=== PATIENT | female | born 1995 | race Caucasian/White ===

== ENCOUNTER 2017-02-06 16:15 | Emergency (ER) | payer MEDICAID ==
[2017-02-06 16:35] VITALS: BP 122/62; PULSE 96; RESP 18; TEMP 100.8; O2SAT 97
[2017-02-06] MEDS ORDERED: IBUPROFEN 200 MG TAB PO ONE (16:35)
[2017-02-06] MEDS ORDERED: DEXAMETHASONE 4 MG TAB PO ONE (18:51)
[2017-02-06] MEDS ORDERED: BICILLIN L-A 1200000 UNIT/2 ML SYRINGE IM ONE (18:51)
[2017-02-06] MEDS ORDERED: HYDROCOD/APAP 5/325 PREPACK#6 BTL TAKEHOME ONE (18:52)
[2017-02-06] MEDS ORDERED: HYDROCODONE/APAP 5/325 TAB PO ONE (18:52)
--- NOTE | 2017-02-06 18:58 | UCPHY ---
H & P Time Seen by Provider: 02/06/17 17:28 Patient Type: New HPI/ROS: HPI Sore throat, fever. 21-year-old female by private vehicle. She complains of sore throat, fever, muscle aches and fatigue since this morning. Throat pain is worse with swallowing. No voice changes or stridor. She is able to swallow liquids. No ill contacts. ROS: Constitutional: As above, no chills. No weakness. Eyes: No discharge. No changes in vision. ENT: As above. No nasal congestion or rhinorrhea. Respiratory: No cough. No shortness of breath. Cardiac: No chest pain, no palpitations. Gastrointestinal: No abdominal pain, no vomiting, no diarrhea. Genitourinary: No hematuria. No dysuria or increased frequency with urination. Musculoskeletal: No back pain. No neck pain. As above. Skin: No rashes. Neurological: No headache. No focal weakness or altered sensation. Past medical history: Spinal surgery. Social history: Here with her boyfriend. Nonsmoker. Physical Exam: General Appearance: Alert, no distress. This patient is responding to questions appropriately and in full sentences. This patient appears well- hydrated and well-nourished. Eyes: Pupils equal and round no pallor or injection. No lid edema, erythema or injection. ENT, Mouth: Mucous membranes are moist. Diffuse mild pharyngeal erythema. No edema. No exudates No asymmetry suggestive of abscess. No stridor on auscultation of her neck. No voice changes. Respiratory: There are no retractions, lungs are clear to auscultation with good air movement bilaterally. Neurological: Motor sensory function is grossly intact. Cranial nerves are normal. Gait is normal. Skin: Warm and dry, no rashes. Musculoskeletal: Neck is supple and nontender. No cervical lymphadenopathy. Extremities are symmetrical. All joints range without pain or impingement. Psychiatric: No agitation. No depression. Database: Rapid strep-positive EKG: Imaging: Procedures: Emergency department course: Rapid strep positive. Patient given intramuscular penicillin G long-acting. She was given 2 Vicodin. She was given Decadron 10 mg orally. Vital signs have been reviewed. She feels comfortable going home and I feel she is safe for discharge. Follow-up and return to emergency department precautions discussed. All of her questions were answered. She was discharged in good condition. Differential Diagnosis: The differential diagnosis on this patient includes but is not limited to streptococcal pharyngitis. Retropharyngeal abscess, peritonsillar abscess, tracheitis, epiglottitis unlikely. This represents a partial list of diagnoses considered. These considerations are based on history, physical exam, past history, reassessment and diagnostic testing. Smoking Status: Never smoked Constitutional: Initial Vital Signs Temperature (C) 38.2 C 02/06/17 16:31 Heart Rate 96 02/06/17 16:31 Respiratory Rate 18 02/06/17 16:31 Blood Pressure 122/62 H 02/06/17 16:31 O2 Sat (%) 97 02/06/17 16:31 O2 Delivery Mode Room Air Allergies/Adverse Reactions: No Known Allergies Allergy (Unverified 02/06/17 16:31) Home Medications: Medication Instructions Recorded Bc Pills 02/06/17 Dexamethasone [Decadron 4 MG (RX)] 8 mg PO ONCE #2 tab 02/06/17 Medical Decision Making - Data Points Laboratory Results: 02/06/17 16:48 Group A Strep Screen POSITIVE H (NEGATIVE) Medications Given: Discontinued Medications Ibuprofen (Motrin) 400 mg PO EDNOW ONE Stop: 02/06/17 16:36 Last Admin: 02/06/17 16:53 Dose: 400 mg Departure - Departure Disposition: Home, Routine, Self-Care Clinical Impression: Streptococcal pharyngitis Condition: Good Instructions: Strep Throat (ED) Additional Instructions: Read and follow provided instructions. Follow-up with your primary care physician in 1-2 days for re-evaluation. Ibuprofen dosin mg every 6 hours with meals for the next 3 days only. [place]/Percocet dosin-2 every 4-6 [address] for [address] not drive on this medication. Take medication as prescribed. Return to the emergency department for worsening throat pain, difficulty swallowing, voice changes, difficulty breathing or other serious concerns. Referrals: NONE *PRIMARY CARE P,. [Primary Care Provider] - As per Instructions Prescriptions: Dexamethasone [Decadron 4 MG (RX)] 8 mg PO ONCE #2 tab - PQRS PQRS Measurement: Not applicable.
== END 2017-02-06 19:09 | disposition home or self-care (01) ==
LOC: CED 16:15
DX: J02.0 Streptococcal pharyngitis (principal)
CPT/HCPCS: 87880-PO; 96372-PO; 99203-PO; G0463-PO; J0561

== ENCOUNTER 2017-07-15 14:04 | Inpatient (IN) | payer MEDICAID ==
--- NOTE | 2017-07-15 15:01 | EDPHY ---
H & P Stated Complaint: FEVER CHILLS BODY ACHES, ABD PAIN, N/V Time Seen by Provider: 07/15/17 15:00 HPI/ROS: CHIEF COMPLAINT: Fever, nausea, vomiting, abdominal pain HISTORY OF PRESENT ILLNESS: The patient presents to the ED with a 1 day history of fever, nausea, vomiting, abdominal pain and diffuse myalgias. The patient reportedly woke with these symptoms today. Yesterday the patient was fine without any symptoms of infection or pain. The patient denies any dysuria or diarrhea. The patient reports she has been quite fatigued secondary to an increased schedule demand at her [facility]. The patient complains of generalized abdominal pain which is greatest in the right lower quadrant and left upper quadrant. She denies any vaginal bleeding or discharge. The patient reports her pain is currently a 10/10. The patient has had no history of cough, rash, swollen joints or other acute complaints. She does complain of a mild frontal headache. She has no sore throat or neck stiffness. There has been no recent travel outside the [place]. She has started no new medications. No known history of an insect bite. REVIEW OF SYSTEMS: A comprehensive 10 point review of systems is otherwise negative aside from elements mentioned in the history of present illness. Source: Patient - Personal History LMP (Females 10-55): 15-21 Days Ago Current Tetanus Diphtheria and Acellular Pertussis (TDAP): Yes - Medical/Surgical History Other PMH: spinal cord surg.POLYCYCTIC OVARIES,DENTAL BONE GRAFT - Social History Smoking Status: Never smoked - Physical Exam Exam: General Appearance: Alert, mild distress secondary to pain, tearful Eyes: Pupils equal and round no pallor or injection ENT, Mouth: Mucous membranes moist Respiratory: There are no retractions, lungs are clear to auscultation Cardiovascular: Regular rate and rhythm Gastrointestinal: Generalized tenderness, greatest in the right lower quadrant , left upper quadrant and suprapubic area Neurological: A&O, normal motor function, normal sensory exam, normal cranial nerves Skin: Warm and dry, no rashes Musculoskeletal: Neck is supple nontender specifically without meningeal symptoms Extremities: symmetrical, full range of motion Constitutional: Initial Vital Signs Temperature (C) 37.0 C 07/15/17 14:09 Heart Rate 108 H 07/15/17 14:09 Respiratory Rate 16 07/15/17 14:09 Blood Pressure 111/91 H 07/15/17 14:09 O2 Sat (%) 99 07/15/17 14:09 O2 Delivery Mode Room Air Allergies/Adverse Reactions: No Known Allergies Allergy (Unverified 07/15/17 14:08) Home Medications: Medication Instructions Recorded NK [No Known Home Meds] 07/15/17 Medical Decision Making - Diagnostics Imaging Results: Imaging Impressions Abdomen CT 07/15/17 16:03 Impression: 1. Minimal central intrahepatic biliary dilatation with mild gallbladder distention in the common duct at the upper limits of normal in caliber. 2. Constipation. 3. Possible sacroiliitis. 4. Additional findings as above. Findings discussed with Dr. Sacha Menjivar on July 15, 2017 at 1726 hours. ED Course/Re-evaluation: The patient presents to the ED for evaluation of fever, nausea, vomiting, myalgias and abdominal pain. The patient's initial examination did demonstrate fairly significant tenderness to palpation throughout her abdomen without localized symptoms. Based upon this finding, she was taken for a emergent CT scan of the abdomen pelvis which was negative for evidence of appendicitis, perforation or free air. CBC which demonstrates a normal white blood cell count. The patient's electrolytes are within normal limits. She had a slightly elevated total bilirubin 1.5. The patient's urinalysis does demonstrate evidence of dehydration without evidence of pyuria or hematuria. The patient was treated with IV fluids, Ativan and pain medications in the emergency department. She had multiple examinations by myself over a 4 hour period. At 7:00 p.m., the patient continues to feel poorly with complaints of fever, myalgias and diffuse body pain. The patient has no meningeal symptoms. At this point time the etiology of her symptoms are somewhat uncertain. It is certainly possible she is experiencing a viral illness such as West Nile virus. I have sent that serology. Blood cultures have been obtained. Given the patient's symptoms of significant malaise and weakness I do feel that she should be admitted to the hospital for observation. She is unable to ambulate secondary to her level of generalized discomfort. Consultation was made with Dr. Martin Novak the hospitalist service who will admit the patient for observation this evening. Differential Diagnosis: Differential diagnosis considered includes appendicitis, pyelonephritis, viral syndrome, West Nile virus, meningitis, pneumonia, bacteremia - Data Points Laboratory Results: Laboratory Results 07/15/17 15:05 07/15/17 15:05 07/15/17 07/15/17 07/15/17 17:30 15:05 15:05 WBC RBC Hgb Hct MCV MCH MCHC RDW Plt Count MPV Neut % (Auto) Lymph % (Auto) [place] % (Auto) Eos % (Auto) Baso % (Auto) Nucleat RBC Rel Count Absolute Neuts (auto) Absolute Lymphs (auto) Absolute Monos (auto) Absolute Eos (auto) Absolute Basos (auto) Absolute Nucleated RBC Immature Gran % Immature Gran # ESR Sodium Potassium Chloride Carbon Dioxide Anion Gap BUN Creatinine Estimated GFR Glucose Calcium Phosphorus Total Bilirubin Conjugated Bilirubin Unconjugated Bilirubin AST ALT Alkaline Phosphatase C-Reactive Protein 17.3 mg/L H mg/L (<10.0) Total Protein Albumin Lipase Beta HCG, Qual Urine Color YELLOW Urine Appearance HAZY Urine pH 8.0 H (5.0-7.5) Ur Specific [place] > 1.035 H (1.002-1.030) Urine Protein NEGATIVE (NEGATIVE) Urine Ketones NEGATIVE (NEGATIVE) Urine Blood 1+ H (NEGATIVE) Urine Nitrate NEGATIVE (NEGATIVE) Urine Bilirubin NEGATIVE (NEGATIVE) Urine Urobilinogen NEGATIVE EU EU (0.2-1.0) Ur Leukocyte Esterase 3+ H (NEGATIVE) Urine RBC NONE SEEN /hpf /hpf (0-3) Urine WBC 1-3 /hpf /hpf (0-3) Ur Epithelial Cells 2+ /lpf H /lpf (NONE-1+) Urine Mucus TRACE /lpf /lpf (NONE-1+) Urine Glucose NEGATIVE (NEGATIVE) West Nile Virus IgG Ab Pending West Nile Virus IgM Ab Pending West Nile Interp Pending 07/15/17 07/15/17 07/15/17 15:05 15:05 15:05 WBC RBC Hgb Hct 48.8 % H % (38.0-47.0) MCV MCH MCHC RDW Plt Count MPV Neut % (Auto) Lymph % (Auto) [place] % (Auto) Eos % (Auto) Baso % (Auto) Nucleat RBC Rel Count Absolute Neuts (auto) Absolute Lymphs (auto) Absolute Monos (auto) Absolute Eos (auto) Absolute Basos (auto) Absolute Nucleated RBC Immature Gran % Immature Gran # ESR Pending Sodium 141 mEq/L mEq/L (134-144) Potassium 3.9 mEq/L mEq/L (3.5-5.2) Chloride 99 mEq/L mEq/L (97-110) Carbon Dioxide 24 mEq/l mEq/l (22-31) Anion Gap 18 mEq/L H mEq/L (8-16) BUN 11 mg/dL mg/dL (7-23) Creatinine 0.7 mg/dL mg/dL (0.6-1.0) Estimated GFR > 60 Glucose 93 mg/dL mg/dL (70-100) Calcium 10.7 mg/dL H mg/dL (8.5-10.4) Phosphorus 2.9 mg/dL mg/dL (2.5-4.5) Total Bilirubin 1.5 mg/dL H mg/dL (0.1-1.4) Conjugated Bilirubin 0.2 mg/dL mg/dL (0.0-0.5) Unconjugated Bilirubin 1.3 mg/dL H mg/dL (0.0-1.1) AST 29 IU/L IU/L (14-46) ALT 46 IU/L IU/L (9-52) Alkaline Phosphatase 73 IU/L IU/L (38-126) C-Reactive Protein Total Protein 8.9 g/dL H g/dL (6.3-8.2) Albumin 5.3 g/dL H g/dL (3.5-5.0) Lipase 217 IU/L IU/L (23-300) Beta HCG, Qual NEGATIVE Urine Color Urine Appearance Urine pH Ur Specific [place] Urine Protein Urine Ketones Urine Blood Urine Nitrate Urine Bilirubin Urine Urobilinogen Ur Leukocyte Esterase Urine RBC Urine WBC Ur Epithelial Cells Urine Mucus Urine Glucose West Nile Virus IgG Ab West Nile Virus IgM Ab West Nile Interp 07/15/17 15:05 WBC 4.73 10^3/uL 10^3/uL (3.80-9.50) RBC 5.36 10^6/uL H 10^6/uL (4.18-5.33) Hgb 17.0 g/dL H g/dL (12.6-16.3) Hct 48.7 % H % (38.0-47.0) MCV 90.9 fL fL (81.5-99.8) MCH 31.7 pg pg (27.9-34.1) MCHC 34.9 g/dL g/dL (32.4-36.7) RDW 12.2 % % (11.5-15.2) Plt Count 233 10^3/uL 10^3/uL (150-400) MPV 9.6 fL fL (8.7-11.7) Neut % (Auto) 88.7 % H % (39.3-74.2) Lymph % (Auto) 6.1 % L % (15.0-45.0) [place] % (Auto) 4.2 % L % (4.5-13.0) Eos % (Auto) 0.4 % L % (0.6-7.6) Baso % (Auto) 0.4 % % (0.3-1.7) Nucleat RBC Rel Count 0.0 % % (0.0-0.2) Absolute Neuts (auto) 4.19 10^3/uL 10^3/uL (1.70-6.50) Absolute Lymphs (auto) 0.29 10^3/uL L 10^3/uL (1.00-3.00) Absolute Monos (auto) 0.20 10^3/uL L 10^3/uL (0.30-0.80) Absolute Eos (auto) 0.02 10^3/uL L 10^3/uL (0.03-0.40) Absolute Basos (auto) 0.02 10^3/uL 10^3/uL (0.02-0.10) Absolute Nucleated RBC 0.00 10^3/uL 10^3/uL (0-0.01) Immature Gran % 0.2 % % (0.0-1.1) Immature Gran # 0.01 10^3/uL 10^3/uL (0.00-0.10) ESR Sodium Potassium Chloride Carbon Dioxide Anion Gap BUN Creatinine Estimated GFR Glucose Calcium Phosphorus Total Bilirubin Conjugated Bilirubin Unconjugated Bilirubin AST ALT Alkaline Phosphatase C-Reactive Protein Total Protein Albumin Lipase Beta HCG, Qual Urine Color Urine Appearance Urine pH Ur Specific [place] Urine Protein Urine Ketones Urine Blood Urine Nitrate Urine Bilirubin Urine Urobilinogen Ur Leukocyte Esterase Urine RBC Urine WBC Ur Epithelial Cells Urine Mucus Urine Glucose West Nile Virus IgG Ab West Nile Virus IgM Ab West Nile Interp Medications Given: Discontinued Medications Sodium Chloride (Ns) 1,000 mls @ 0 mls/hr IV EDNOW ONE; [place] PRN Reason: Protocol Stop: 07/15/17 15:07 Last Admin: 07/15/17 15:19 Dose: 1,000 mls Sodium Chloride (Ns) 1,000 mls @ 0 mls/hr IV EDNOW ONE; Wide Open PRN Reason: Protocol Stop: 07/15/17 18:48 Last Admin: 07/15/17 19:05 Dose: 1,000 mls Lorazepam (Ativan Injection) 0.5 mg IVP EDNOW ONE Stop: 07/15/17 15:07 Last Admin: 07/15/17 15:19 Dose: 0.5 mg Morphine Sulfate (Morphine) 4 mg IVP EDNOW ONE Stop: 07/15/17 15:07 Last Admin: 07/15/17 15:19 Dose: 4 mg Ondansetron HCl (Zofran) 4 mg IVP EDNOW ONE Stop: 07/15/17 17:10 Last Admin: 07/15/17 17:14 Dose: 4 mg Departure - Departure Disposition: [facility] Inpatient Acute Clinical Impression: Febrile illness, acute Condition: Good Referrals: NONE *PRIMARY CARE P,. [Primary Care Provider] - As per Instructions
[2017-07-15] MEDS ORDERED: NS 1,000 ML IV ONE ×2 (15:06→18:47)
[2017-07-15] MEDS ORDERED: LORazepam 2 MG/ML INJ IVP ONE (15:06)
[2017-07-15 15:13] LABS: % IMMATURE GRANULYOCYTES 0.2 % (0.0-1.1); ABSOLUTE IMMATURE GRANULOCYTES 0.01 10^3/uL (0.00-0.10); ADD DIFF? NO; ADD MORPH? NO; ADD SCAN? NO; ATYPICAL LYMPHOCYTE FLAG 0 (0-99); FRAGMENT RBC FLAG 0 (0-99); HEMATOCRIT 48.7 % (38.0-47.0); LEFT SHIFT FLG 40 (0-99); LIPEMIA HEMOLYSIS FLAG 90 (0-99); MEAN CELL HEMOGLOBIN 31.7 pg (27.9-34.1); MEAN CELL HEMOGLOBIN CONCENTR. 34.9 g/dL (32.4-36.7); MEAN CELL VOLUME 90.9 fL (81.5-99.8); MEAN PLATELET VOLUME 9.6 fL (8.7-11.7); PLATELET CLUMPS FLAG 0 (0-99); PLATELET COUNT 233 10^3/uL (150-400); RED BLOOD CELL COUNT 5.36 10^6/uL (4.18-5.33); RED CELL DISTRIBUTION WIDTH 12.2 % (11.5-15.2)
[2017-07-15 15:33] LABS: ALANINE AMINOTRANSFERASE 46 IU/L (9-52); ALBUMIN 5.3 g/dL (3.5-5.0); ALKALINE PHOSPHATASE 73 IU/L (38-126); ANION GAP 18 mEq/L (8-16); ASPARTATE AMINOTRANSFERASE 29 IU/L (14-46); BILIRUBIN,TOTAL 1.5 mg/dL (0.1-1.4); BILIRUBIN-CONJUGATED 0.2 mg/dL (0.0-0.5); BILIRUBIN-UNCONJUGATED 1.3 mg/dL (0.0-1.1); CALCIUM 10.7 mg/dL (8.5-10.4); CARBON DIOXIDE 24 mEq/l (22-31); CHLORIDE 99 mEq/L (97-110); CREATININE 0.7 mg/dL (0.6-1.0); GLOMERULAR FILTRATION RATE > 60; GLUCOSE 93 mg/dL (70-100); POTASSIUM 3.9 mEq/L (3.5-5.2); SODIUM 141 mEq/L (134-144); TOTAL PROTEIN 8.9 g/dL (6.3-8.2)
[2017-07-15] MEDS ORDERED: IOPAMIDOL (ISOVUE-300) 100 ML BTL ONE (16:18)
[2017-07-15] MEDS ORDERED: ONDANSETRON 4 MG/2 ML VIAL IVP ONE (17:09)
[2017-07-15 18:09] LABS: COLOR YELLOW; LEUKOCYTE ESTERASE,URINE 3+ (NEGATIVE); NITRITE,URINE NEGATIVE (NEGATIVE)
[2017-07-15 18:21] LABS: MUCUS TRACE /lpf (NONE-1+)
[2017-07-15 18:30] LABS: RBC,URINE NONE SEEN /hpf (0-3)
[2017-07-15 19:07] LABS: HEMATOCRIT 48.8 % (38.0-47.0)
[2017-07-15] MEDS ORDERED: ONDANSETRON DISINTEGRATING 4 MG TAB PO PRN (19:08)
--- NOTE | 2017-07-15 19:35 | GHP ---
[f rep st] HISTORY AND PHYSICAL DATE OF ADMISSION: 07/15/2017 CHIEF COMPLAINT: Fever. HISTORY OF PRESENT ILLNESS: This is a 21-year-old female, who comes in with fevers and rigors that began at 5:00 a.m. this morning. She also complains of nausea, vomiting, and some crampy abdominal pain. She says that she woke up with these symptoms. She also describes some myalgias and feeling of her skin crawling. She tells me it feels like she has the flu. She has no headache, sore throat , runny nose, coughing. Some mild shortness of breath with deep inspiration. No chest pain. Some ongoing abdominal pain. No dysuria, no diarrhea, no new rash. She tells me that everyone in her so rority is sick, though it sounds like they all have different illnesses. PAST MEDICAL/SURGICAL HISTORY: 1. Spinal surgeries for scoliosis, including rods. 2. PCOS. 3. Dental bone graft. MEDICATIONS: Please see medication reconciliation. ALLERGIES: No known drug allergies. FAMILY HISTORY: Reviewed and noncontributory. SOCIAL HISTORY: She is studying by [employer] at . REVIEW OF SYSTEMS: A 10-point review of systems is conducted, and is negative except per HPI. PHYSICAL EXAM: VITAL SIGNS: Blood pressure 123/81, heart rate 98, respiration rate 18, sat 97% on room air, temperature is 37.5. GENERAL: The patient is a pleasant female, appears quite uncomforta ble. She is slightly tearful throughout the interview. HEENT: Normocephalic, atraumatic. NECK: N o cervical lymphadenopathy. CARDIAC: Regular rate and rhythm. No murmurs, rubs, or gallops. PULM ONARY: Lungs clear to auscultation bilaterally. ABDOMEN: Soft. She is mildly diffusely tender to palpation. There is no Dean's sign. SKIN: No rash. : No [place]. NEUROLOGIC: Alert and orie nted x3. She is moving all extremities. PSYCHIATRIC: Normal mood and affect. LABS: Hemoglobin 17. ESR is pending. Anion gap is 18, though she has normal bicarb, total bilirub in is 1.5, calcium is 10.7. Urinalysis shows 3+ leuk esterase, 1+ blood. West Nile virus serologie s are pending. DATA: I discussed with Dr. Menjivar in the ED. We will admit to med surg for observation. Her CT sc an shows mild central intrahepatic biliary dilation, possible sacroiliitis. IMPRESSION AND PLAN: A 21-year-old female with suspected viral syndrome. 1. Viral syndrome: Primary localizing symptoms are nausea, vomiting. This could be norovirus and rotavirus. She is not really having much diarrhea associated with this. Inflammatory markers are p ending. CT scan shows mild intrahepatic biliary dilation, though her exam is not really consistent with acute cholecystitis. Her bilirubin is slightly elevated. I will send off a respiratory viral PCR. She tells me she feels like she has the flu. Otherwise, we will admit for supportive care, an d following other labs that have been sent. Provide her IV hydration, Tylenol, Toradol, and narcoti cs as needed. 2. Dehydration: She will get continuous IV fluids overnight. We will recheck her labs including h er erythrocythemia, hypercalcemia, and her anion gap. /[id number]/MODL
[2017-07-15] MEDS ORDERED: KETOROLAC 30 MG/1 ML SDV ONE (19:44)
[2017-07-15] MEDS: ACETAMINOPHEN 500 MG TAB PO SCH (20:48)
[2017-07-15] MEDS: NS 1,000 ML IV SCH (20:48)
[2017-07-15] MEDS: oxyCODONE IR 5 MG TAB PO PRN (20:49)
[2017-07-16] MEDS: KETOROLAC 15 MG/1 ML SDV IVP SCH ×2 (00:36→05:05)
[2017-07-16] MEDS: NS 1,000 ML IV SCH ×2 (05:06→15:08)
[2017-07-16 05:14] LABS: ADD DIFF? NO; ADD MORPH? NO; ADD SCAN? NO; ATYPICAL LYMPHOCYTE FLAG 0 (0-99); FRAGMENT RBC FLAG 0 (0-99); HEMOGLOBIN 12.8 g/dL (12.6-16.3); LEFT SHIFT FLG 40 (0-99); LIPEMIA HEMOLYSIS FLAG 80 (0-99); MEAN CELL HEMOGLOBIN 31.4 pg (27.9-34.1); MEAN CELL HEMOGLOBIN CONCENTR. 33.7 g/dL (32.4-36.7); MEAN CELL VOLUME 93.1 fL (81.5-99.8); MEAN PLATELET VOLUME 9.3 fL (8.7-11.7); PLATELET CLUMPS FLAG 0 (0-99); PLATELET COUNT 180 10^3/uL (150-400); RED BLOOD CELL COUNT 4.08 10^6/uL (4.18-5.33); RED CELL DISTRIBUTION WIDTH 12.3 % (11.5-15.2)
[2017-07-16 05:29] LABS: ALANINE AMINOTRANSFERASE 32 IU/L (9-52); ALBUMIN 2.9 g/dL (3.5-5.0); ALKALINE PHOSPHATASE 43 IU/L (38-126); ANION GAP 7 mEq/L (8-16); ASPARTATE AMINOTRANSFERASE 22 IU/L (14-46); CALCIUM 8.8 mg/dL (8.5-10.4); CARBON DIOXIDE 26 mEq/l (22-31); CHLORIDE 105 mEq/L (97-110); CREATININE 0.7 mg/dL (0.6-1.0); GLOMERULAR FILTRATION RATE > 60; GLUCOSE 95 mg/dL (70-100); POTASSIUM 4.2 mEq/L (3.5-5.2); SODIUM 138 mEq/L (134-144); TOTAL PROTEIN 5.4 g/dL (6.3-8.2)
[2017-07-16] MEDS: ACETAMINOPHEN 500 MG TAB PO SCH ×3 (09:31→20:56)
[2017-07-16] MEDS: oxyCODONE IR 5 MG TAB PO PRN ×4 (09:32→20:56)
[2017-07-16] MEDS ORDERED: MAGNESIUM HYDROXIDE 30 ML UDCUP PO PRN (11:10)
[2017-07-16] MEDS ORDERED: BISACODYL 10 MG SUPP PR PRN (11:10)
[2017-07-16] MEDS ORDERED: LACTULOSE 20 GM/30 ML UDCUP PO PRN (11:10)
[2017-07-16] MEDS: IBUPROFEN 600 MG TAB PO PRN ×2 (12:09→18:11)
[2017-07-16] MEDS: POLYETHYLENE GLYCOL 3350 17 GM PKT PO PRN (12:10)
--- NOTE | 2017-07-16 15:47 | HOSPPROG ---
Hospitalist Progress Note Assessment/Plan: * Fever/N/V/abd pain -may all be viral but consider GB disease -had recurrent of fever last night -new intermittent RUQ pain for 1 week -CT with bile duct dilation, distended GB -check abd US * Constipation - no BM for 5 days -bowel protocol * Scoliosis s/p fusion * Sacroiliitis - ? degenerative * RLQ pain - CT negative in this region -recommended outpatient area forester follow-up * Emotional distress - step father in traumatic accident last night - in ICU Subjective: Patient very tearful, still not eating much. Lots of RUQ pain, new for the last week. Family history of gallbladder disease. RLQ/pelvic pain - different - has been going for almost a year. Objective: Vital Signs Temp Pulse Resp BP Pulse Ox 36.8 C 64 16 105/61 96 07/16/17 15:22 07/16/17 15:22 07/16/17 15:22 07/16/17 15:22 07/16/17 15:22 Microbiology 07/15/17 23:42 Respiratory Panel (PCR) - Final Nasal, Sinus - Swab No Organism Detected Laboratory Results 07/16/17 04:58 07/16/17 04:58 07/15/17 07/16/17 07/17/17 05:59 05:59 05:59 Intake Total 2800 Output Total 2100 1700 Balance 700 -1700 - Physical Exam Constitutional: no apparent distress, appears nourished, not in pain Cardiovascular: regular rate and rhythym, no murmur, rub, or gallop Respiratory: no respiratory distress, no rales or rhonchi, clear to auscultation Gastrointestinal: normoactive bowel sounds, soft, non-tender abdomen, no palpable masses Skin: no rashes or abrasions, no fluctuance, no induration Neurologic: AAOx3, sensation intact bilaterally Psychiatric: interacting appropriately, not anxious, not encephalopathic, thought process linear ICD10 Worksheet Patient Problems: Problems Problem Status Onset Febrile illness, acute Acute
[2017-07-16] MEDS: SENNOSIDES/DOCUSATE SODIUM TAB PO SCH (19:39)
[2017-07-16] MEDS: ONDANSETRON 4 MG/2 ML VIAL IVP PRN (19:39)
[2017-07-17] MEDS: NS 1,000 ML IV SCH ×3 (00:12→19:38)
[2017-07-17] MEDS: ONDANSETRON 4 MG/2 ML VIAL IVP PRN (00:12)
[2017-07-17] MEDS ORDERED: PROMETHAZINE HCL 25 MG/ML INJ IVP PRN (00:24)
[2017-07-17] MEDS ORDERED: HYDROmorphONE/DILAUDID 1 MG/ML SYR IVP ONE (01:10)
[2017-07-17 01:34] LABS: COLOR PALE YELLOW; LEUKOCYTE ESTERASE,URINE NEGATIVE (NEGATIVE); NITRITE,URINE NEGATIVE (NEGATIVE)
[2017-07-17] MEDS: SENNOSIDES/DOCUSATE SODIUM TAB PO SCH ×2 (10:28→21:22)
[2017-07-17] MEDS: IBUPROFEN 600 MG TAB PO PRN (10:28)
[2017-07-17] MEDS: ACETAMINOPHEN 500 MG TAB PO SCH ×3 (10:29→21:22)
[2017-07-17] MEDS: oxyCODONE IR 5 MG TAB PO PRN ×3 (10:34→18:24)
[2017-07-17 12:02] LABS: % IMMATURE GRANULYOCYTES 0.8 % (0.0-1.1); ABSOLUTE IMMATURE GRANULOCYTES 0.02 10^3/uL (0.00-0.10); ADD DIFF? NO; ADD MORPH? NO; ADD SCAN? NO; ATYPICAL LYMPHOCYTE FLAG 0 (0-99); FRAGMENT RBC FLAG 0 (0-99); HEMATOCRIT 36.9 % (38.0-47.0); HEMOGLOBIN 12.4 g/dL (12.6-16.3); LEFT SHIFT FLG 10 (0-99); LIPEMIA HEMOLYSIS FLAG 80 (0-99); MEAN CELL HEMOGLOBIN 31.7 pg (27.9-34.1); MEAN CELL HEMOGLOBIN CONCENTR. 33.6 g/dL (32.4-36.7); MEAN CELL VOLUME 94.4 fL (81.5-99.8); MEAN PLATELET VOLUME 9.7 fL (8.7-11.7); PLATELET CLUMPS FLAG 0 (0-99); PLATELET COUNT 169 10^3/uL (150-400); RED BLOOD CELL COUNT 3.91 10^6/uL (4.18-5.33); RED CELL DISTRIBUTION WIDTH 12.5 % (11.5-15.2)
[2017-07-17 12:11] LABS: INR 1.15 (0.83-1.16); PROTIME(PATIENT) 14.6 SEC (12.0-15.0)
[2017-07-17] MEDS: POLYETHYLENE GLYCOL 3350 17 GM PKT PO PRN (12:25)
[2017-07-17] MEDS: PANTOPRAZOLE SODIUM 40 MG in NS 100 ML IV SCH (12:25)
[2017-07-17 12:41] LABS: ALANINE AMINOTRANSFERASE 43 IU/L (9-52); ALBUMIN 3.1 g/dL (3.5-5.0); ALKALINE PHOSPHATASE 51 IU/L (38-126); ANION GAP 7 mEq/L (8-16); ASPARTATE AMINOTRANSFERASE 26 IU/L (14-46); BILIRUBIN,TOTAL 0.4 mg/dL (0.1-1.4); BILIRUBIN-CONJUGATED 0.3 mg/dL (0.0-0.5); BILIRUBIN-UNCONJUGATED 0.1 mg/dL (0.0-1.1); CALCIUM 9.1 mg/dL (8.5-10.4); CARBON DIOXIDE 27 mEq/l (22-31); CHLORIDE 107 mEq/L (97-110); CREATININE 0.7 mg/dL (0.6-1.0); GLOMERULAR FILTRATION RATE > 60; GLUCOSE 77 mg/dL (70-100); POTASSIUM 3.7 mEq/L (3.5-5.2); SODIUM 141 mEq/L (134-144); TOTAL PROTEIN 5.6 g/dL (6.3-8.2)
--- NOTE | 2017-07-17 15:38 | HOSPPROG ---
Hospitalist Progress Note Assessment/Plan: * Epigastric + RUQ/LUQ abd pain -suspect element of viral gastroenteritis (fever) -consider PUD given prolonged course (10 days) -RUQ US ok - no evidence for GB disease -start empiric PPI and advance diet -NPO after midnight in case EGD warranted in am -consult GI in am if patient is not improved * Constipation - no BM for 5 days -bowel protocol * Scoliosis s/p fusion * Sacroiliitis - ? degenerative * Chronic RLQ pain - CT negative in this region -recommended outpatient mobile game engineer follow-up * Possible malnutrition - albumin low -check pre-albumin -patient follows very restrictive diet -dietary consult Subjective: N/V last night. Still with bilateral upper quadrant pain that is new for the last 10 days. This is on a background of chronic RLQ pain which she has had since IUD placed. Objective: Vital Signs Temp Pulse Resp BP Pulse Ox 36.5 C 71 16 103/71 93 07/17/17 12:00 07/17/17 12:00 07/17/17 12:00 07/17/17 12:00 07/17/17 12:00 Laboratory Results 07/17/17 11:55 07/17/17 11:55 07/16/17 07/17/17 07/18/17 05:59 05:59 05:59 Intake Total 2600 500 Output Total 3602 700 Balance -1002 -200 PT 14.6 SEC (12.0-15.0) 07/17/17 11:55 INR 1.15 (0.83-1.16) 07/17/17 11:55 Case d/w Dr. Vlilela. He is unavailable to do EGD tomorrow and patient has already eaten today. Will need to call [facility] for EGD tomorrow if still indicated. RUQ US - normal GB - Time Spent With Patient Time Spent with Patient: greater than 35 minutes Time Spent with Patient: Greater than 35 minutes spent on this patients care, greater than 50% of time spent counseling, educating, and coordinating care regarding the above mentioned plan. - Physical Exam Constitutional: no apparent distress, appears nourished, not in pain Cardiovascular: regular rate and rhythym, no murmur, rub, or gallop Respiratory: no respiratory distress, no rales or rhonchi, clear to auscultation Gastrointestinal: normoactive bowel sounds, soft, non-tender abdomen, no palpable masses Skin: no rashes or abrasions, no fluctuance, no induration Neurologic: AAOx3, sensation intact bilaterally Psychiatric: interacting appropriately, not anxious, not encephalopathic, thought process linear ICD10 Worksheet Patient Problems: Problems Problem Status Onset Febrile illness, acute Acute
[2017-07-18 05:20] LABS: ADD MORPH? NO; ADD SCAN? YES; FRAGMENT RBC FLAG 0 (0-99); HEMATOCRIT 32.9 % (38.0-47.0); HEMOGLOBIN 11.2 g/dL (12.6-16.3); LEFT SHIFT FLG 0 (0-99); LIPEMIA HEMOLYSIS FLAG 90 (0-99); MEAN CELL HEMOGLOBIN 31.8 pg (27.9-34.1); MEAN CELL VOLUME 93.5 fL (81.5-99.8); MEAN PLATELET VOLUME 9.8 fL (8.7-11.7); PLATELET CLUMPS FLAG 10 (0-99); PLATELET COUNT 149 10^3/uL (150-400); RED BLOOD CELL COUNT 3.52 10^6/uL (4.18-5.33); RED CELL DISTRIBUTION WIDTH 12.6 % (11.5-15.2)
[2017-07-18 05:22] LABS: ATYPICAL LYMPHOCYTE FLAG 100 (0-99)
[2017-07-18 06:13] LABS: ADD DIFF? YES; SCAN POSITIVE
[2017-07-18 06:19] LABS: PLATELET ESTIMATE DECREASED (ADEQ)
[2017-07-18] MEDS: PANTOPRAZOLE SODIUM 40 MG in NS 100 ML IV SCH (08:42)
[2017-07-18] MEDS: ACETAMINOPHEN 500 MG TAB PO SCH ×3 (08:42→22:11)
[2017-07-18] MEDS: SENNOSIDES/DOCUSATE SODIUM TAB PO SCH ×2 (08:43→22:12)
[2017-07-18] MEDS: oxyCODONE IR 5 MG TAB PO PRN ×3 (08:48→18:29)
--- NOTE | 2017-07-18 10:34 | HOSPPROG ---
Hospitalist Progress Note Assessment/Plan: #Acute epigastric/RUQ pain: she states pain worse today in RUQ and epigastric region. Mild biliary dilatation on CT, GB normal on U/S. CRP was elevated, ESR 6. -GI rec trial PPI BID and MRCP given biliary dilation #Moderate protein caloric malnutrition: pre-alb low. Follows a restrictive diet #PCOS #Scoliosis: s/p spinal surgeries #Sacroilitis: degenerative vs inflammatory. CRP elevated. HLA-B27 pending #Lymphocytosis: mono pending #Diet: ADAT #DVT ppx: low risk #Disp: warrants inpt with acute abd pain, poor PO intake. Requires further imaging Subjective: pain worse today in epigastrum, RUQ Objective: Vital Signs Temp Pulse Resp BP Pulse Ox 36.9 C 45 L 14 107/72 94 07/18/17 08:15 07/18/17 08:15 07/18/17 08:15 07/18/17 08:15 07/18/17 08:15 Laboratory Results 07/18/17 05:02 07/17/17 11:55 07/17/17 07/18/17 07/19/17 05:59 05:59 05:59 Intake Total 2600 5050 Output Total 3602 3200 Balance -1002 1850 PT 14.6 SEC (12.0-15.0) 07/17/17 11:55 INR 1.15 (0.83-1.16) 07/17/17 11:55 - Physical Exam Constitutional: other (tearful, thin female) Eyes: PERRL Ears, Nose, Mouth, Throat: moist mucous membranes, hearing normal Cardiovascular: regular rate and rhythym, no murmur, rub, or gallop Respiratory: no respiratory distress, no rales or rhonchi Gastrointestinal: normoactive bowel sounds (quiet throughout), distension (mild distension.), other (TTP RUQ, epigastrum. No rebound or guarding) Genitourinary: no bladder fullness Skin: warm Musculoskeletal: full muscle strength Neurologic: AAOx3, CN II-XII Intact Psychiatric: interacting appropriately, flat affect (tearful) ICD10 Worksheet Patient Problems: Problems Problem Status Onset Febrile illness, acute Acute
[2017-07-18] MEDS ORDERED: KETOROLAC 15 MG/1 ML SDV IVP PRN (12:58)
[2017-07-18 14:19] LABS: INTERPRETATION See Comments; WEST NILE VIRUS IGG Negative (Negative); WEST NILE VIRUS IGM Negative (Negative)
[2017-07-18] MEDS: NS 1,000 ML IV SCH (16:13)
[2017-07-18] MEDS: PANTOPRAZOLE SODIUM 40 MG TAB PO SCH (22:12)
[2017-07-19] MEDS: NS 1,000 ML IV SCH (04:11)
[2017-07-19 06:26] LABS: HEMATOCRIT 34.3 % (38.0-47.0); HEMOGLOBIN 11.9 g/dL (12.6-16.3); MEAN CELL HEMOGLOBIN 31.6 pg (27.9-34.1); MEAN CELL HEMOGLOBIN CONCENTR. 34.7 g/dL (32.4-36.7); MEAN CELL VOLUME 91.2 fL (81.5-99.8); RED BLOOD CELL COUNT 3.76 10^6/uL (4.18-5.33); RED CELL DISTRIBUTION WIDTH 12.4 % (11.5-15.2)
[2017-07-19 06:39] LABS: ALANINE AMINOTRANSFERASE 41 IU/L (9-52); ALBUMIN 2.8 g/dL (3.5-5.0); ALKALINE PHOSPHATASE 56 IU/L (38-126); ANION GAP 10 mEq/L (8-16); ASPARTATE AMINOTRANSFERASE 22 IU/L (14-46); BILIRUBIN,TOTAL 0.3 mg/dL (0.1-1.4); CALCIUM 8.7 mg/dL (8.5-10.4); CARBON DIOXIDE 25 mEq/l (22-31); CHLORIDE 106 mEq/L (97-110); CREATININE 0.6 mg/dL (0.6-1.0); GLOMERULAR FILTRATION RATE > 60; GLUCOSE 81 mg/dL (70-100); POTASSIUM 3.5 mEq/L (3.5-5.2); SODIUM 141 mEq/L (134-144); TOTAL PROTEIN 5.3 g/dL (6.3-8.2)
[2017-07-19] MEDS: PANTOPRAZOLE SODIUM 40 MG TAB PO SCH (09:25)
[2017-07-19] MEDS: ACETAMINOPHEN 500 MG TAB PO SCH ×2 (09:26→15:45)
[2017-07-19] MEDS: oxyCODONE IR 5 MG TAB PO PRN ×2 (10:12→15:44)
[2017-07-19] MEDS: SENNOSIDES/DOCUSATE SODIUM TAB PO SCH (10:12)
--- NOTE | 2017-07-19 10:12 | HOSPPROG ---
Hospitalist Progress Note Assessment/Plan: #Acute epigastric/RLQ pain: she states pain worse today in RUQ and epigastric region. Mild biliary dilatation on CT, GB normal on U/S. CRP was elevated, ESR 6. -suspect IBS. Trial Liness -transvag U/S with right adenexal fluid, likely due to ruptured cyst, no e/o abscess. Reviewed with Natan with [facility] Treat with Advil or APAP, heating pad #Incidental right liver lobe lesion: 1.3cm, will need repeat MRI in 2-3 months #Moderate protein caloric malnutrition: pre-alb low. Follows a restrictive diet. Counseled her on my concern of restricting diet lamont with new dx of IBS #Suspected IBS: plan as above. FU with GI #PCOS: not on meds. #Scoliosis: s/p spinal surgeries #Sacroilitis: degenerative vs inflammatory. CRP elevated. HLA-B27 pending #Lymphocytosis: negative mono #Diet: ADAT #DVT ppx: low risk #Disp:DC today Time spent on visit: 90 min in which 60 min spent counseling pt and mother of test/imaging results and outpatient plans. Remaining time spent reviewing imaging and discussing case with Natan with [facility], Dr. Aden Subjective: did well overnight, lower abd began this morning. Very teaful with mother in room Objective: Vital Signs Temp Pulse Resp BP Pulse Ox 36.6 C 44 L 12 103/72 95 07/19/17 04:00 07/19/17 04:00 07/19/17 04:00 07/19/17 04:00 07/19/17 04:00 Laboratory Results 07/19/17 05:54 07/19/17 05:54 07/18/17 07/19/17 07/20/17 05:59 05:59 05:59 Intake Total 5050 3422 Output Total 3200 Balance 1850 3422 PT 14.6 SEC (12.0-15.0) 07/17/17 11:55 INR 1.15 (0.83-1.16) 07/17/17 11:55 - Physical Exam Constitutional: no apparent distress Eyes: PERRL Ears, Nose, Mouth, Throat: moist mucous membranes, hearing normal Cardiovascular: regular rate and rhythym, no murmur, rub, or gallop Respiratory: no respiratory distress, no rales or rhonchi Gastrointestinal: normoactive bowel sounds, tenderness (mild RLQ TTP), distension (mild distension. TTP left, right LQs), No guarding, No rebound ICD10 Worksheet Patient Problems: Problems Problem Status Onset Febrile illness, acute Acute
[2017-07-19 11:06] VITALS: BP 128/93; PULSE 59; RESP 16; TEMP 97.9; O2SAT 96
[2017-07-19] MEDS ORDERED: HYOSCYAMINE SULFATE 0.125 MG TAB PO PRN (12:26)
--- NOTE | 2017-07-19 12:41 | PDCONSULT ---
Cargo Router Note: Full note dictated. Suspect IBS with acute on chronic pain. Possible sacroiliitis but no e/o IBD by sxm or CT scan Rec Await u/s Trial of Levsin F/U GI office for possible SIBO breath test Check celiac sprue serology F/U ASSISTANT CASE MANAGER and rheumatology Suggest repeat multiphase MRI in 2-3 months
--- NOTE | 2017-07-19 13:22 | GCON ---
[f rep st] CONSULTATION DATE OF CONSULTATION: 07/19/2017 REFERRING PHYSICIAN: Giselle Stewart MD CHIEF COMPLAINT: Abdominal pain. HISTORY OF PRESENT ILLNESS: I am asked to see this patient in consultation by Dr. Stewart for a mishel f complaint of abdominal pain. The patient is a 21-year-old, who does admit to having several-year history of abdominal discomfort, primarily as abdominal bloating, primarily in the lower area. Has had episodes of more significant pain and then developed, this week, severe, stabbing right upper qu adrant pain. 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 She had s ubjective fevers. Came into the emergency room for evaluation. The pain is intermittent and now at times is across her abdomen, both right and left side, and down into the pelvis. She does admit th at it is maybe worse when it is more stressful. Pressure and heat do help relieve the pain. She bonds s underlying constipation generally with a bowel movement once every 4 days, but no blood in her sto ols. No melena. No diarrhea. No family history for inflammatory bowel disease. She does have dali ycystic ovarian syndrome and sacroiliitis, but states that she was never evaluated by a rheumatologi st. ALLERGIES: No known drug allergies. MEDICATIONS: The patient states she is on no medications prior to hospital stay. PAST MEDICAL HISTORY: Notable for scoliosis, status post spinal surgeries and sacroiliitis. She bonds s polycystic ovarian syndrome. FAMILY HISTORY: Negative for inflammatory bowel disease. SOCIAL HISTORY: Patient is studying at . REVIEW OF SYSTEMS: Review of 10 systems: I performed a complete review of systems, is negative, ex cept for the pertinent positives and negatives noted above in the HPI. PHYSICAL EXAM: VITAL SIGNS: Patient is afebrile at 36.6, BP 128/93, pulse 59. CONSTITUTIONAL: Gayle rt and oriented. EYES: No scleral icterus. HEENT: No oral lesions. CARDIOVASCULAR: Regular rat e and rhythm. CHEST: Clear to auscultation. ABDOMEN: Soft. She does have some tenderness to pal pation, but somewhat distractible. NEUROLOGICAL: Nonfocal. SKIN: No lesions. LABORATORY DATA: BUN and creatinine are normal. LFTs were normal on admission. Pro time normal. CBC showed a hematocrit of 30.3, with a white count of 4 and platelets 384. Lipase was normal at 21 7. Of note, CRP was elevated at 34. CT scan of the abdomen shows minimal central intrahepatic bili sona dilation with mild gallbladder distention, common duct at the upper limits of normal. There is constipation noted, possible sacroiliitis noted. Ultrasound from 07/16/2017 shows normal-appearing gallbladder. No cholelithiasis. Biliary duct dilation is not seen here, and there is minimal hepat omegaly. MRCP shows normal ducts, and there is no obstruction. Gallbladder appears normal. There is an inci dental indeterminate lesion at 1.3 cm in the right lobe of the liver, firm and poorly characterized. No steatohepatitis seen. No portal vein thrombosis. ASSESSMENT: 1. Patient with abdominal pain. I suspect that this is an acute on chronic exacerbation as the pat ient does have a long history of abdominal bloating associated with constipation. I suspect that davi ricks has underlying irritable bowel syndrome. The patient has had some acute sick contacts. It is pos sible she may have an enteritis contributing to her acute pain. 2. Bloating. I suspect this is probably from an underlying irritable bowel syndrome, but consider small intestinal bacterial overgrowth or related back to her polycystic ovarian syndrome. 3. Sacroiliitis. This may account for her elevated C-reactive protein, but this also may be elevat ed if she had a recent infectious issue. At this point, there is no direct evidence for inflammator y bowel disease on her imaging, and given that she does not have diarrhea or bleeding, I think is un likely to have active IBD at this time. However, this may benefit from further evaluation with Rheu matology. 4. Incidental finding of indeterminate liver lesion, may be artifact. As she has normal LFTs and i s small, I doubt that this is contributing to her abdominal pain. PLAN: 1. I recommend trial of Levsin. 2. Agree with pelvic ultrasound, and patient should follow up with Gynecology. 3. I would recommend patient follow up with Rheumatology given her sacroiliitis, and select testing is pending. 4. Have patient follow up with GI. If she is not responding to Levsin, can do a SIBO breath test a nd/or consider empiric treatment for bacterial overgrowth and would suggest, at some point, a repeat MRI with triple phase to better evaluate her liver lesion. We will sign off for now. Thank you for this consult. /[id number]/MODL
--- NOTE | 2017-07-19 15:08 | GDS ---
[f rep st] DISCHARGE SUMMARY DISCHARGE DIAGNOSES: 1. Acute history acute right pelvic pain. 2. Fever. 3. Suspect irritable bowel syndrome. 4. Chronic constipation. 5. Polycystic ovarian syndrome. HISTORY OF PRESENT ILLNESS: A 21-year-old female with history of PCOS and prior spinal surgeries fo r scoliosis, presenting with fevers, rigors that began 07/15/2017. She had some nausea, vomiting, a nd crampy abdominal pain. Dunlo some myalgias as though her skin was crawling, and felt like she had the flu. Denied headache, sore throat, runny nose, cough. No chest pain. She has had intermittent constipation, bloating, and achy abdominal pain over the past 2 years. She says she is more concerned with the bloating feeling. She does seem to have a restricted diet and exercises daily. HOSPITAL COURSE BY PROBLEM: 1. Fever: No overt etiology. UA and viral PCR were negative. Denied any diarrhea. Abdominal CT and ultrasound were negative for abscess. Pelvic ultrasound did show right adnexal free fluid, whic h is suggestive of a ruptured ovarian cyst, so possibly may have fever in the setting of this acute process. She has remained afebrile since this time. 2. Acute on chronic right lower abdominal pain: Suspect that this is due to a ruptured ovarian cys t. Again, there is no evidence of abscess or infection on ultrasound. I did discuss this with Gyne cology, who recommended symptomatic care with Advil or Tylenol for pain and heating pad. 3. Suspected IBS: The patient with chronic abdominal pain, worse now. She underwent extensive ganesh luation here with an abdominal CT that showed mild biliary dilatation. MRCP was ordered given persi stent pain, and this was also negative. Dr. Aden with GI saw the patient and recommend a trial of Linzess, and follow up in the clinic. We will check a celiac sprue serology, and possible SIBO breath test. 4. Right liver lesion: This is an incidental finding that is on imaging. Recommend a multiphase M RI in 2-3 months. 5. Possible sacroiliitis: This was shown on abdominal CT. This could be degenerative versus infla mmatory, but less suspicion given she does not have IBD symptomology. However, is lawrence torres. 6. Mild protein caloric malnutrition: Her pre-albumin was 17. I expressed to patient concern for restrictive diet and exercise, and to be cautious with new diagnosis of IBS to not over restrict mary d. DISPOSITION: The patient is stable for discharge. DISCHARGE MEDICATIONS: New medications: Linzess. FOLLOW UP: 1. Dr. Markie lainez with GI [facility] the [facility]. 2. [facility]. She needs to establish a primary care physician. 3. Multiphase MRI in 2-3 months. 4. Labs pending the celiac sprue serology. /[id number]/MODL
--- NOTE | 2017-07-19 16:02 | ASMTCMCOM ---
CM Note CM Note Notes: Patient discharging home Independent with no additional case management needs apparent at this time . Date Signed: 07/19/2017 04:01 PM Electronically Signed By:Latoya Willson
[2017-07-21 13:39] LABS: HLA B27 INTERPRETATION See Comments
[2017-07-21 19:24] LABS: CELIAC DISEASE INTERPRETATION See Comments; IMMUNOGLOBULIN A CELIAC 157 mg/dL (61 - 356)
== END 2017-07-19 18:58 | disposition home or self-care (01) | DRG 760 ==
LOC: F1N 20:25 → OBSVTOIN 07-16 10:25
PROVIDERS: ADMIT Student in an Organized Health Care Education/Training Program; ATTEND Student in an Organized Health Care Education/Training Program
CPT/HCPCS: 82784-90; 83516-90; 84134-90; 86812-90; 96374; G0378; J1170; J1885; J2060; J2405; J2550; Q9967